=== PATIENT | male | born 1965 | race Hispanic/Latino ===

== ENCOUNTER 2017-08-08 03:38 | Emergency (ER) | payer OTHER ==
[2017-08-08 04:06] VITALS: BP 145/97; PULSE 125; RESP 18; TEMP 97.4; O2SAT 98
[2017-08-08] MEDS ORDERED: Lidocaine 2% Inj (20ml) INFIL ONE (04:16)
--- NOTE | 2017-08-08 04:18 | ED PDOC ---
HPI: Head Injury Time Seen by Provider: 08/08/17 04:17 Chief Complaint (Nursing): Trauma Chief Complaint (Provider): head injury History Per: Patient (51 y/o male here with head injury that last night at 8: 30pm. Patient states he tripped but could not detail events. Fall was unwitnessed by his friend who joined him for drinking and noted bleeding from scalp 1 hour ago.) Past Medical History Reviewed: Historical Data, Nursing Documentation, Vital Signs Vital Signs: Last Vital Signs Temp 97.4 F L 08/08/17 04:03 Pulse 125 H 08/08/17 04:03 Resp 18 08/08/17 04:03 BP 145/97 H 08/08/17 04:03 Pulse Ox 98 08/08/17 04:03 - Family History Family History: States: No Known Family Hx - Allergies Allergies/Adverse Reactions: Allergies Allergy/AdvReac Type Severity Reaction Status Date / Time No Known Allergies Allergy Verified 08/08/17 03:58 Review of Systems ROS Statement: Except As Marked, All Systems Reviewed And Found Negative Physical Exam - Reviewed Nursing Documentation Reviewed: Yes Vital Signs Reviewed: Yes - Physical Exam Appears: Positive for: Well, Non-toxic, No Acute Distress Head Exam: Positive for: NORMAL INSPECTION, NORMOCEPHALIC. Negative for: ATRAUMATIC (3.5 cm linear scalp laceration noted posterior scalp.) Skin: Positive for: Normal Color, Warm, DRY Eye Exam: Positive for: EOMI, Normal appearance, PERRL ENT: Positive for: Normal ENT Inspection Neck: Positive for: Normal, Painless ROM Cardiovascular/Chest: Positive for: Regular Rate, Rhythm Respiratory: Positive for: CNT, Normal Breath Sounds Gastrointestinal/Abdominal: Positive for: Normal Exam, Bowel Sounds, Soft Back: Positive for: Normal Inspection Extremity: Positive for: Normal ROM Neurologic/Psych: Positive for: Alert, Oriented - ECG O2 Sat by Pulse Oximetry: 98 - Progress ED Course And Treament: HEAD CT: FINDINGS: Brain: Minimal atrophy. No intracranial hemorrhage. No mass. No edema. Ventricles: No hydrocephalus. Bones/joints: No acute fracture. Soft tissues: Minimal scalp swelling. Vasculature: Minimal atherosclerotic disease of intracranial arteries. Sinuses: Mild mucosal thickening of ethmoid sinuses. Moderate focal thickening + /- fluid of LEFT sphenoid sinus. Scattered minimal mucosal thickening of remaining sinuses. Mastoid air cells: No mastoid effusion. Orbits: Unremarkable as visualized. IMPRESSION: 1. No intracranial hemorrhage. 2. Incidental/non-acute findings are described above. Thank you for allowing us to participate in the care of your patient. Dictated and Authenticated by: Jm Fraga MD 08/08/2017 5:12 AM Eastern Time ([place] & [place]) patient states tetanus status up to date 4 years ago Disposition - Clinical Impression Clinical Impression: Head injury - Patient ED Disposition Is Patient to be Admitted: No - Disposition Disposition: Routine/Home Disposition Time: 05:28 Condition: FAIR Additional Instructions: RETURN TO ED/ FOLLOW UP WITH PMD OR URGENT CARE FOR REMOVAL OF JUAN IN SEVEN TO TEN DAYS Instructions: Head Injury (ED), Laceration (DC) Forms: [employer] ([place]) Procedure: Wound Repair - Time Performed Time Performed: 05:26 - Time Out Time Out: Site verified - Consent Obtained Consent obtained: Verbal - Performed by Performed by: Mid-level Provider - Indications Indication(s):: Laceration - Location Location:: Scalp Shape:: Linear Dimensions Length cm: 3.5 CM - Anesthetic Technique Local/Regional Anesthetic:: Lidocaine 2% w/epi - Complexity Complexity:: Simple (one layer) - Wound repair method Sutures:: # (NINE JUAN INTERRUPTED)
[2017-08-08] MEDS ORDERED: Lidocaine 2% w Epi 1:100,000 Inj IJ ONE ×2 (05:08→05:09)
--- NOTE | 2017-08-08 09:39 | CT ---
PROCEDURE: CT HEAD WITHOUT CONTRAST. HISTORY: head injury COMPARISON: None available. TECHNIQUE: Axial computed tomography images were obtained through the head/brain without intravenous contrast. Radiation dose: Total exam DLP = 1245.0 mGy-cm. This CT exam was performed using one or more of the following dose reduction techniques: Automated exposure control, adjustment of the mA and/or kV according to patient size, and/or use of iterative reconstruction technique. FINDINGS: HEMORRHAGE: No intracranial hemorrhage. BRAIN: No mass effect or edema. No atrophy or chronic microvascular ischemic changes. VENTRICLES: Unremarkable. No hydrocephalus. CALVARIUM: Unremarkable. PARANASAL SINUSES: Left sphenoid sinus secretions. MASTOID AIR CELLS: Unremarkable as visualized. No inflammatory changes. OTHER FINDINGS: None. IMPRESSION: No acute intracranial pathology.
== END 2017-08-08 06:00 | disposition home or self-care (01) ==
LOC: H.ER 03:38
DX: S09.90XA Unspecified injury of head, initial encounter (principal); S01.01XA Laceration without foreign body of scalp, initial encounter; W19.XXXA Unspecified fall, initial encounter; Y92.89 Other specified places as the place of occurrence of the external cause